=== PATIENT | female | born 1965 | race Caucasian/White ===

== ENCOUNTER 2017-11-10 12:13 | Emergency (ER) | payer MEDICAID ==
[~2017-11-10] VITALS: Ht 162.6 cm; Wt 68.0 kg
[2017-11-10] MEDS ORDERED: HYDROCODONE/ACETAMINOPHEN 5/325MG TABLET PO ONE (14:30)
[2017-11-10 15:41] VITALS: BP 110/69
== END 2017-11-10 15:43 | disposition home or self-care (01) ==
LOC: ER 12:27
DX: S22.31XA Fracture of one rib, right side, initial encounter for closed fracture (principal); J45.909 Unspecified asthma, uncomplicated; R56.9 Unspecified convulsions; F17.200 Nicotine dependence, unspecified, uncomplicated; Z88.8 Allergy status to other drugs, medicaments and biological substances; W18.39XA Other fall on same level, initial encounter; Y93.89 Activity, other specified; Y92.89 Other specified places as the place of occurrence of the external cause; Y99.8 Other external cause status
CPT/HCPCS: 71111; 93005; 99284